=== PATIENT | male | born 1945 | race Caucasian/White ===

== ENCOUNTER 2019-09-15 08:26 | Inpatient (IN) | payer MEDICARE, OTHER ==
[2019-09-15 09:33] LABS: ABS Basophils 0.1 10^3/ul (0-0.2); ABS Lymphocytes 1.1 10^3/ul (1.0-4.8); ABS Monocytes 0.5 10^3/ul (0-0.8); Hematocrit 40 % (42-52); Hemoglobin 13.7 g/dL (14.0-18.0); Lymphocyte % 21.6 %; Mean Corpuscular HGB Conc 34 g/dL (31-36); Mean Corpuscular Hemoglobin 35 pg (27-31); Mean Corpuscular Volume 104 fL (80-94); Mean Platelet Volume 8.5 fL (7.4-10.4); Platelet Count 176 10^3/uL (150-450); Red Cell Distribution Width 16 % (10-15)
[2019-09-15 09:50] LABS: ALT 20 U/L (7-52); AST 43 U/L (13-39); Albumin/Globulin Ratio 1.9 (1-3); Alkaline Phosphatase 66 U/L (34-104); Anion Gap 10 mmol/L (2-11); BUN/Creatinine Ratio 17.5 (8-20); Blood Urea Nitrogen 17 mg/dL (6-24); CO2 Carbon Dioxide 23 mmol/L (22-32); Calcium 9.1 mg/dL (8.6-10.3); Chloride 108 mmol/L (101-111); EGFR African American 91.3 (>60); EGFR Non-African American 75.5 (>60); Globulin 2.1 g/dL (2-4); Glucose 88 mg/dL (70-100); Magnesium 1.9 mg/dL (1.9-2.7); Potassium 3.3 mmol/L (3.5-5.0); Sodium 141 mmol/L (135-145); Total Protein 6.1 g/dL (6.4-8.9)
[2019-09-15 09:51] LABS: Troponin I 0.01 ng/mL (<0.03)
[2019-09-15 09:52] LABS: Acetaminophen < 15 mcg/mL; Alcohol, S < 10 mg/dL (<10)
[2019-09-15 10:07] LABS: TSH (Thyroid Stimulating Horm) 0.67 mcIU/mL (0.34-5.60)
[2019-09-15] MEDS ORDERED: KCL 10 MEQ/50 ML IVPREMIX 10 MEQ/50 ML BAG IV ONE (10:33)
[2019-09-15] MEDS ORDERED: Sodium Bicarb 8.4% Vial 50 ML 150 MEQ in D5W 1000 ml BAG 850 ML IV ONE (10:42)
[2019-09-15 10:47] LABS: Urine Appearance Clear; Urine Bilirubin Negative (Negative); Urine Blood 1+ (Negative); Urine Color Yellow; Urine Glucose Negative (Negative); Urine Ketones 1+ (Negative); Urine Nitrite Negative (Negative); Urine Protein 1+(30 mg/dL) (Negative); Urine Specific Gravity 1.023 (1.010-1.030); Urine Urobilinogen Negative (Negative)
[2019-09-15 10:49] LABS: Urine Bacteria Absent (Absent); Urine Red Blood Cell 3+(>10/hpf) (Absent); Urine White Blood Cell 1+(6-10/hpf) (Absent)
[2019-09-15] MEDS ORDERED: Dextrose 50% Syringe 50 ml 25 GM/50 ML SYRINGE IV PUSH ONE (10:53)
[2019-09-15] MEDS ORDERED: D5W 1000 ml BAG 850 ML with Sodium Bicarb 8.4% Vial 50 ML 150 MEQ IV ONE (11:00)
[2019-09-15 11:07] LABS: Urine Benzodiazepine Screen None Detected (None Detect); Urine Opiates Screen None Detected (None Detect)
[2019-09-15] MEDS ORDERED: Senna TAB 8.6 mg TAB PO PRN (11:27)
[2019-09-15] MEDS ORDERED: Ondansetron 4 mg VIAL 2 MG/ML 2 ml VIAL IV PRN (11:27)
[2019-09-15] MEDS ORDERED: NS 0.9% 1000 ml BAG 1,000 ML IV SCH (11:30)
[2019-09-15 12:50] LABS: BUN/Creatinine Ratio 16.7 (8-20); Calcium 8.9 mg/dL (8.6-10.3); EGFR African American 92.4 (>60); EGFR Non-African American 76.4 (>60); Potassium 3.3 mmol/L (3.5-5.0)
[2019-09-15 13:50] LABS: Folate 18.44 ng/mL (>3.99)
[2019-09-15] MEDS: KCL 20 MEQ/100 ML IVPREMIX 20 MEQ/100 ML BAG IV SCH ×2 (14:45→16:45)
[2019-09-15] MEDS: Enoxaparin 40 MG/0.4 ML SYR(*) SUBCUT SCH (15:45)
[2019-09-15] MEDS: Sodium Bicarb 8.4% Vial 50 ML 150 MEQ in D5W 1000 ml BAG 850 ML IV SCH ×2 (16:00→18:04)
[2019-09-15] MEDS ORDERED: Potassium Chlor 20 meq TAB.ER PO ONE ×2 (16:44→20:06)
[2019-09-15 16:47] LABS: ABS Lymphocytes 1.4 10^3/ul (1.0-4.8); ABS Monocytes 0.5 10^3/ul (0-0.8); Eosinophil % 0.3 %; Hematocrit 42 % (42-52); Hemoglobin 14.1 g/dL (14.0-18.0); Lymphocyte % 29.3 %; Mean Corpuscular HGB Conc 34 g/dL (31-36); Mean Corpuscular Hemoglobin 35 pg (27-31); Mean Corpuscular Volume 104 fL (80-94); Mean Platelet Volume 8.5 fL (7.4-10.4); Nucleated Red Blood Cells % 0.1; Platelet Count 165 10^3/uL (150-450); Red Blood Count 4.02 10^6 /uL (4.18-5.48); Red Cell Distribution Width 16 % (10-15); White Blood Count 4.7 10^3/uL (3.5-10.8)
[2019-09-15 16:52] LABS: Calcium 9.2 mg/dL (8.6-10.3); Potassium 3.4 mmol/L (3.5-5.0)
[2019-09-15 16:58] LABS: EGFR African American 102.2 (>60); EGFR Non-African American 84.4 (>60)
[2019-09-15 17:58] LABS: Magnesium 1.9 mg/dL (1.9-2.7)
[2019-09-15 18:04] LABS: Phosphorus 2.4 mg/dL (2.5-5.0)
[2019-09-15] MEDS: D5LR 1000 ml BAG 1,000 ML IV SCH (20:10)
[2019-09-15 21:13] LABS: Lithium < 0.10 mmol/L (0.6-1.2)
[2019-09-15 21:18] LABS: Digoxin < 0.3 ng/ml (0.8-2.0)
[2019-09-16 00:38] LABS: Calcium 8.2 mg/dL (8.6-10.3); Potassium 3.8 mmol/L (3.5-5.0)
[2019-09-16 00:43] LABS: BUN/Creatinine Ratio 15.6 (8-20); EGFR African American 119.2 (>60); EGFR Non-African American 98.5 (>60)
[2019-09-16 05:10] LABS: ABS Lymphocytes 1.4 10^3/ul (1.0-4.8); ABS Monocytes 0.5 10^3/ul (0-0.8); Eosinophil % 0.9 %; Hematocrit 39 % (42-52); Lymphocyte % 27.7 %; Mean Corpuscular HGB Conc 34 g/dL (31-36); Mean Corpuscular Hemoglobin 35 pg (27-31); Mean Corpuscular Volume 103 fL (80-94); Mean Platelet Volume 8.2 fL (7.4-10.4); Nucleated Red Blood Cells % 0.1; Platelet Count 150 10^3/uL (150-450); Red Blood Count 3.72 10^6 /uL (4.18-5.48); Red Cell Distribution Width 16 % (10-15); White Blood Count 4.9 10^3/uL (3.5-10.8)
[2019-09-16 05:19] LABS: INR 1.22 (0.82-1.09)
[2019-09-16 05:30] LABS: Albumin 3.5 g/dL (3.2-5.2); Albumin/Globulin Ratio 1.9 (1-3); BUN/Creatinine Ratio 14.7 (8-20); EGFR African American 122.8 (>60); EGFR Non-African American 101.5 (>60); Globulin 1.8 g/dL (2-4); Magnesium 1.8 mg/dL (1.9-2.7); Phosphorus 2.3 mg/dL (2.5-5.0); Potassium 3.8 mmol/L (3.5-5.0); Total Bilirubin 0.6 mg/dL (0.2-1.0); Total Protein 5.3 g/dL (6.4-8.9)
[2019-09-16 05:34] LABS: Salicylate 20.9 mg/dL (<30)
[2019-09-16 06:12] LABS: Urine Appearance Clear; Urine Bilirubin Negative (Negative); Urine Blood 2+ (Negative); Urine Color Yellow; Urine Glucose Negative (Negative); Urine Ketones Trace (Negative); Urine Nitrite Negative (Negative); Urine Protein Negative (Negative); Urine Specific Gravity 1.015 (1.010-1.030); Urine Urobilinogen Negative (Negative)
[2019-09-16 06:16] LABS: Urine Bacteria Absent (Absent); Urine Red Blood Cell Trace(0-2/hpf) (Absent); Urine White Blood Cell Absent (Absent)
[2019-09-16] MEDS ORDERED: Magnesium Sulfate IV 3 GM in NS 0.9% 100 ml BAG 100 ML IVPB ONE (08:17)
[2019-09-16] MEDS ORDERED: Potassium Phosphate IV 10 MMOLE in NS 0.9% 250 ml 250 ML IVPB ONE (09:00)
[2019-09-16] MEDS: D5LR 1000 ml BAG 1,000 ML IV SCH (09:20)
[2019-09-16] MEDS ORDERED: Thiamine 100 MG/ML 2 ml VIAL 500 MG in NS 0.9% 250 ml 250 ML IV ONE (10:00)
[2019-09-16] MEDS: Enoxaparin 40 MG/0.4 ML SYR(*) SUBCUT SCH (12:15)
[2019-09-17] MEDS: Enoxaparin 40 MG/0.4 ML SYR(*) SUBCUT SCH (13:18)
[2019-09-17 23:00] LABS: Anion Gap 2 mmol/L (2-11); BUN/Creatinine Ratio 15.7 (8-20); Blood Urea Nitrogen 11 mg/dL (6-24); CO2 Carbon Dioxide 30 mmol/L (22-32); Calcium 8.9 mg/dL (8.6-10.3); Chloride 107 mmol/L (101-111); EGFR Non-African American 109.9 (>60); Glucose 96 mg/dL (70-100); Potassium 4.4 mmol/L (3.5-5.0); Sodium 139 mmol/L (135-145)
[2019-09-17 23:26] LABS: Salicylate < 2.50 mg/dL (<30)
[2019-09-18 01:24] LABS: Urine Potassium Concentration 27.2 mmol/L
[2019-09-18 03:07] LABS: ABS Eosinophils 0.1 10^3/ul (0-0.6); ABS Monocytes 0.4 10^3/ul (0-0.8); Hematocrit 40 % (42-52); Hemoglobin 13.8 g/dL (14.0-18.0); Mean Corpuscular HGB Conc 34 g/dL (31-36); Mean Corpuscular Hemoglobin 36 pg (27-31); Mean Corpuscular Volume 104 fL (80-94); Mean Platelet Volume 8.4 fL (7.4-10.4); Platelet Count 153 10^3/uL (150-450); Red Blood Count 3.88 10^6 /uL (4.18-5.48); Red Cell Distribution Width 16 % (10-15); White Blood Count 4.8 10^3/uL (3.5-10.8)
[2019-09-18 03:08] LABS: Eosinophil % 2.2 %; Erythrocyte Sed Rate 7 mm/Hr (0-19); Salicylate < 10.00 mg/dL (<30)
[2019-09-18 03:09] LABS: Anion Gap 4 mmol/L (2-11); BUN/Creatinine Ratio 13.2 (8-20); Blood Urea Nitrogen 9 mg/dL (6-24); CO2 Carbon Dioxide 28 mmol/L (22-32); Calcium 9.2 mg/dL (8.6-10.3); Chloride 107 mmol/L (101-111); Creatine Kinase 215 U/L (10-223); EGFR African American 137.6 (>60); EGFR Non-African American 113.7 (>60); Glucose 82 mg/dL (70-100); Potassium 4.1 mmol/L (3.5-5.0); Sodium 139 mmol/L (135-145)
[2019-09-18 03:10] LABS: C Reactive Protein 6.35 mg/L (<8.01); TSH (Thyroid Stimulating Horm) 1.07 mcIU/mL (0.34-5.60)
[2019-09-18] MEDS: Enoxaparin 40 MG/0.4 ML SYR(*) SUBCUT SCH (12:27)
[2019-09-18 14:57] LABS: Albumin 3.7 g/dL (3.2-5.2)
[2019-09-18 15:03] LABS: Prealbumin 28 mg/dL (18-38)
[2019-09-19 07:00] LABS: ABS Eosinophils 0.1 10^3/ul (0-0.6); ABS Lymphocytes 1.2 10^3/ul (1.0-4.8); ABS Monocytes 0.7 10^3/ul (0-0.8); Eosinophil % 1.8 %; Hematocrit 40 % (42-52); Hemoglobin 13.7 g/dL (14.0-18.0); Lymphocyte % 18.3 %; Mean Corpuscular HGB Conc 35 g/dL (31-36); Mean Corpuscular Hemoglobin 36 pg (27-31); Mean Corpuscular Volume 104 fL (80-94); Mean Platelet Volume 8.5 fL (7.4-10.4); Platelet Count 170 10^3/uL (150-450); Red Blood Count 3.79 10^6 /uL (4.18-5.48); Red Cell Distribution Width 15 % (10-15); White Blood Count 6.4 10^3/uL (3.5-10.8)
[2019-09-19 07:06] LABS: BUN/Creatinine Ratio 20.3 (8-20); Calcium 9.5 mg/dL (8.6-10.3); EGFR African American 147.5 (>60); EGFR Non-African American 121.9 (>60); Potassium 3.9 mmol/L (3.5-5.0)
[2019-09-19] MEDS: Multivitamins/Minerals TAB PO SCH (07:41)
[2019-09-19] MEDS: Enoxaparin 40 MG/0.4 ML SYR(*) SUBCUT SCH (12:24)
[2019-09-19] MEDS ORDERED: Haloperidol 5 mg/ml SDV IV/IM 5 MG/ML AMP IM ONE (22:03)
[2019-09-20] MEDS: Multivitamins/Minerals TAB PO SCH (08:35)
[2019-09-20 11:13] LABS: ABS Lymphocytes 0.6 10^3/ul (1.0-4.8); ABS Monocytes 0.9 10^3/ul (0-0.8); Eosinophil % 0.3 %; Hematocrit 37 % (42-52); Hemoglobin 12.9 g/dL (14.0-18.0); Lymphocyte % 8.5 %; Mean Corpuscular HGB Conc 35 g/dL (31-36); Mean Corpuscular Hemoglobin 36 pg (27-31); Mean Corpuscular Volume 103 fL (80-94); Mean Platelet Volume 8.5 fL (7.4-10.4); Platelet Count 166 10^3/uL (150-450); Red Blood Count 3.61 10^6 /uL (4.18-5.48); Red Cell Distribution Width 15 % (10-15); White Blood Count 6.5 10^3/uL (3.5-10.8)
[2019-09-20 11:47] LABS: Albumin 3.6 g/dL (3.2-5.2); Albumin/Globulin Ratio 1.8 (1-3); BUN/Creatinine Ratio 32.4 (8-20); Calcium 9.6 mg/dL (8.6-10.3); EGFR African American 130.9 (>60); EGFR Non-African American 108.2 (>60); Potassium 3.8 mmol/L (3.5-5.0); Total Bilirubin 0.9 mg/dL (0.2-1.0); Total Protein 5.6 g/dL (6.4-8.9)
[2019-09-20] MEDS: Enoxaparin 40 MG/0.4 ML SYR(*) SUBCUT SCH (12:00)
[2019-09-20] MEDS ORDERED: Ziprasidone IM 20 mg VIAL 1 ml VIAL IM ONE (16:28)
[2019-09-20 18:38] LABS: Urine Appearance Cloudy; Urine Bilirubin Negative (Negative); Urine Blood 2+ (Negative); Urine Color Yellow; Urine Glucose Negative (Negative); Urine Ketones Negative (Negative); Urine Nitrite Negative (Negative); Urine Protein Negative (Negative); Urine Specific Gravity 1.011 (1.010-1.030); Urine Urobilinogen Negative (Negative)
[2019-09-20 18:49] LABS: Urine Bacteria Absent (Absent); Urine Red Blood Cell 3+(>10/hpf) (Absent); Urine White Blood Cell Trace(0-5/hpf) (Absent)
[2019-09-20] MEDS ORDERED: Haloperidol 5 mg/ml SDV IV/IM 5 MG/ML AMP IM ONE (23:50)
[2019-09-21] MEDS: Multivitamins/Minerals TAB PO SCH (07:47)
[2019-09-21] MEDS ORDERED: Gadoteridol (CONTRAST) 279.3 MG/ML 10 ML IV ONE (13:07)
[2019-09-21] MEDS: Enoxaparin 40 MG/0.4 ML SYR(*) SUBCUT SCH (13:57)
[2019-09-21] MEDS ORDERED: Haloperidol 5 mg/ml SDV IV/IM 5 MG/ML AMP IM ONE (14:00)
[2019-09-21] MEDS ORDERED: Haloperidol 5 mg/ml SDV IV/IM 5 MG/ML AMP ONE (16:17)
[2019-09-22 06:01] LABS: ABS Eosinophils 0.1 10^3/ul (0-0.6); Eosinophil % 1.1 %; Hematocrit 37 % (42-52); Hemoglobin 12.6 g/dL (14.0-18.0); Lymphocyte % 15.4 %; Mean Corpuscular HGB Conc 34 g/dL (31-36); Mean Corpuscular Hemoglobin 36 pg (27-31); Mean Corpuscular Volume 106 fL (80-94); Mean Platelet Volume 8.6 fL (7.4-10.4); Platelet Count 165 10^3/uL (150-450); Red Blood Count 3.45 10^6 /uL (4.18-5.48); Red Cell Distribution Width 15 % (10-15); White Blood Count 6.3 10^3/uL (3.5-10.8)
[2019-09-22 06:09] LABS: BUN/Creatinine Ratio 32.1 (8-20); Calcium 9.4 mg/dL (8.6-10.3); EGFR African American 172.1 (>60); EGFR Non-African American 142.2 (>60); Potassium 3.7 mmol/L (3.5-5.0)
[2019-09-22] MEDS: Multivitamins/Minerals TAB PO SCH (08:19)
[2019-09-22] MEDS: Enoxaparin 40 MG/0.4 ML SYR(*) SUBCUT SCH (12:40)
[2019-09-23 06:10] LABS: ABS Lymphocytes 0.7 10^3/ul (1.0-4.8); Hematocrit 35 % (42-52); Hemoglobin 12.2 g/dL (14.0-18.0); Mean Corpuscular HGB Conc 35 g/dL (31-36); Mean Corpuscular Hemoglobin 36 pg (27-31); Mean Corpuscular Volume 104 fL (80-94); Mean Platelet Volume 8.1 fL (7.4-10.4); Nucleated Red Blood Cells % 0.1; Platelet Count 194 10^3/uL (150-450); Red Cell Distribution Width 15 % (10-15); White Blood Count 6.4 10^3/uL (3.5-10.8)
[2019-09-23 06:25] LABS: Calcium 9.4 mg/dL (8.6-10.3); EGFR African American 196.1 (>60); EGFR Non-African American 162.1 (>60); Magnesium 1.8 mg/dL (1.9-2.7); Potassium 3.9 mmol/L (3.5-5.0)
[2019-09-23] MEDS ORDERED: Magnesium Sulfate IV 1GM/100ML 1 GM/100 ML BAG IV ONE (07:55)
[2019-09-23 09:02] VITALS: BP 152/78
[2019-09-23] MEDS: Multivitamins/Minerals TAB PO SCH (10:06)
== END 2019-09-23 11:20 | disposition swing bed (61) | DRG 918 ==
LOC: ED 08:26 → OBSVTOIN 11:27 → ICU 11:27 → MEDTELE 09-16 11:55
PROVIDERS: ADMIT Internal Medicine Critical Care Medicine; ATTEND Internal Medicine